=== PATIENT | male | born 1945 | race Caucasian/White ===

== ENCOUNTER 2024-06-24 19:21 | Emergency (ER) | payer MEDICARE, OTHER ==
[~2024-06-24] VITALS: Ht 180.3 cm; Wt 73.0 kg
[2024-06-24 19:26] VITALS: BP 136/68; PULSE 82; TEMP 98.8; O2SAT 98
[2024-06-24] MEDS ORDERED: AMOX1TAB16 MT (21:40)
[2024-06-24 21:45] VITALS: RESP 19
[2024-06-24] MEDS: BACITRACIN ZINC OINT UDPKT TOP ONE (21:55)
[2024-06-24] MEDS: LIDOCAINE HCL/PF 1% 10 MG/ML 5ML VIAL INFIL ONE (21:55)
[2024-06-24] MEDS: TETANUS, DIPHTHERIA, PERTUSSIS VAC/PF 0.5ML (>10YR OLD) IM ONE (21:57)
[2024-06-24] MEDS: AMOXICILLIN/POTASSIUM CLAVULANATE 875/125MG TAB PO ONE (23:08)
== END 2024-06-24 23:14 | disposition home or self-care (01) ==
LOC: ER 19:21
DX: S81.851A Open bite, right lower leg, initial encounter (principal); I10 Essential (primary) hypertension; Z86.73 Personal history of transient ischemic attack (TIA), and cerebral infarction without residual deficits; W54.0XXA Bitten by dog, initial encounter; Y93.89 Activity, other specified; Y92.89 Other specified places as the place of occurrence of the external cause; Y99.8 Other external cause status
CPT/HCPCS: 99283; 73590; 90715; 90471; J3490